=== PATIENT | female | born 1990 | race Caucasian/White ===

== ENCOUNTER → 2018-07-19 | Outpatient (CLI) | payer OTHER ==
[2018-07-19 07:55] LABS: HEMATOCRIT 41.8 % (37.0-47.0); HEMOGLOBIN 14.1 gm/dL (12.0-15.0); MCH 30.4 pg (26.0-34.0); MCHC 33.6 g/dL (28.0-37.0); MCV 90.3 fL (80.0-100.0); MPV 10.5 fl. (7.2-11.1); RBC 4.63 mil/uL (4.20-5.00); RDW-CV 12.8 % (10.5-14.5); WBC 5.3 thou/uL (4.0-11.0)
[2018-07-19 08:05] LABS: ALBUMIN 3.8 g/dL (3.4-5.0); ALKALINE PHOSPHATASE 69 U/L (46-116); ANION GAP 8 mmol/L (7-16); BUN 15 mg/dL (7-18); CALCIUM 8.9 mg/dL (8.5-10.1); CHLORIDE 102 mmol/L (98-107); CHOLESTEROL 173 mg/dL (<200); CO2 29 mmol/L (21-32); CREATININE 0.7 mg/dL (0.6-1.3); GLUCOSE 90 mg/dL (70-99); HDL CHOLESTEROL 78 mg/dL (>40); LDL CHOLESTEROL 85 mg/dL (<100); POTASSIUM 3.9 mmol/L (3.5-5.1); SGOT 14 U/L (15-37); SGPT 22 U/L (30-65); SODIUM 139 mmol/L (136-145); TC:HDL 2.2 Ratio (Not establshd); TOTAL BILIRUBIN 0.7 mg/dL (<0.1-1.0); TOTAL PROTEIN 7.2 g/dL (6.4-8.2); TRIGLYCERIDE 54 mg/dL (<150); VLDL 11 mg/dL (<40)
[2018-07-19 08:09] LABS: SERUM ASSESSMENT Clear
== END ==
LOC: M.LAB 07:32
PROVIDERS: Nurse Practitioner Family
DX: Z01.419 Encounter for gynecological examination (general) (routine) without abnormal findings (principal); R53.83 Other fatigue

== ENCOUNTER → 2018-09-16 | Outpatient (CLI) | payer OTHER ==
[2018-09-16 10:39] LABS: HEMATOCRIT 42.1 % (37.0-47.0); HEMOGLOBIN 14.4 gm/dL (12.0-15.0); MCH 30.9 pg (26.0-34.0); MCHC 34.1 g/dL (28.0-37.0); MCV 90.4 fL (80.0-100.0); MPV 10.5 fl. (7.2-11.1); RBC 4.66 mil/uL (4.20-5.00); RDW-CV 12.6 % (10.5-14.5); WBC 6.5 thou/uL (4.0-11.0)
== END ==
LOC: M.LAB 10:18
PROVIDERS: Nurse Practitioner Family
DX: N91.2 Amenorrhea, unspecified (principal)

== ENCOUNTER → 2018-10-13 | Outpatient (CLI) | payer OTHER | LOC: M.ULTRA 15:43 | DX: Z34.81 Encounter for supervision of other normal pregnancy, first trimester (principal); Z3A.10 10 weeks gestation of pregnancy ==

== ENCOUNTER → 2021-07-14 | Outpatient (CLI) | payer OTHER ==
[2021-07-14 17:44] LABS: ABSOLUTE EOSINOPHILS 0.1 thou/uL (0.0-0.7); ABSOLUTE LYMPHOCYTES 2.4 thou/uL (0.8-5.3); ABSOLUTE MONOCYTES 0.6 thou/uL (0.0-1.2); ABSOLUTE NEUTROPHILS 3.5 thou/uL (1.6-8.1); BASOPHILS 0.4 %; EOSINOPHILS 1.9 %; HEMATOCRIT 39.9 % (37.0-47.0); HEMOGLOBIN 13.3 gm/dL (12.0-15.0); MCH 30.1 pg (26.0-34.0); MCHC 33.4 g/dL (28.0-37.0); MCV 90.1 fL (80.0-100.0); MONOCYTES 8.5 %; MPV 10.6 fl. (7.2-11.1); NUCLEATED RBCS 0 /100WBC; PLATELET COUNT* 160 thou/uL (150-400); POLYS 53.2 %; RBC 4.43 mil/uL (4.20-5.00); RDW-CV 12.4 % (10.5-14.5); WBC 6.7 thou/uL (4.0-11.0)
[2021-07-14 17:46] LABS: URINE BILIRUBIN NEGATIVE (Negative); URINE BLOOD 1+ (Negative); URINE CLARITY CLEAR; URINE COLOR YELLOW; URINE GLUCOSE-RANDOM NEGATIVE (Negative); URINE KETONES NEGATIVE (Negative); URINE LEUKOCYTES-REFLEX NEGATIVE (Negative); URINE NITRITE-REFLEX NEGATIVE (Negative); URINE PROTEIN NEGATIVE (Negative); URINE SPECIFIC GRAVITY >= 1.030 (1.005-1.030); URINE UROBILINOGEN 0.2 E.U./dl (0.2-1.0)
[2021-07-14 17:54] LABS: MUCUS 4-6 Moderate strn/LPF (None Seen); SQUAMOUS 4-10 Moderate /LPF (0-3)
[2021-07-14 17:55] LABS: BACTERIA-REFLEX 1-9 Few /HPF (None Seen); CASTS None Seen /LPF (None Seen); CRYSTALS None Seen /LPF (None Seen); URINE RBC 0-2 Rare /HPF (0-2); URINE WBC-REFLEX 0-5 Rare /HPF (0-5)
[2021-07-14 17:57] LABS: ALBUMIN 3.6 g/dL (3.4-5.0); ALKALINE PHOSPHATASE 67 U/L (46-116); ANION GAP 5 mmol/L (7-16); BUN 16 mg/dL (7-18); CHLORIDE 101 mmol/L (98-107); CHOLESTEROL 193 mg/dL (<200); CO2 31 mmol/L (21-32); CREATININE 0.7 mg/dL (0.6-1.3); GLUCOSE 86 mg/dL (70-99); HDL CHOLESTEROL 69 mg/dL (>40); LDL CHOLESTEROL 103 mg/dL (<100); POTASSIUM 3.7 mmol/L (3.5-5.1); SGOT 17 U/L (15-37); SGPT 26 U/L (30-65); SODIUM 137 mmol/L (136-145); TC:HDL 2.8 Ratio (Not establshd); TOTAL BILIRUBIN 0.3 mg/dL (<0.1-1.0); TOTAL PROTEIN 7.3 g/dL (6.4-8.2); TRIGLYCERIDE 107 mg/dL (<150); VLDL 21 mg/dL (<40)
[2021-07-14 17:58] LABS: SERUM ASSESSMENT Clear
== END ==
LOC: M.LAB 17:22
DX: Z00.00 Encounter for general adult medical examination without abnormal findings (principal); Z13.220 Encounter for screening for lipoid disorders; Z13.29 Encounter for screening for other suspected endocrine disorder; R53.83 Other fatigue